=== PATIENT | female | born 1995 | race Two or more races ===

== ENCOUNTER 2020-06-17 01:30 | Inpatient (IN) | payer OTHER ==
[~2020-06-17] VITALS: Ht 152.4 cm; Wt 2.7 kg
[2020-06-17] MEDS ORDERED: PRENATAL + DHA1 EAC1 PO (10:59)
== END 2020-06-19 11:00 | disposition home or self-care (01) | DRG 788 ==
LOC: O/R 01:30 → LDR 01:30 → OB/GYN 01:30 → O/R 11:43 → OB/GYN 15:38
PROVIDERS: ADMIT Obstetrics & Gynecology; ATTEND Obstetrics & Gynecology
PROC: 4A1HXFZ Monitoring of Products of Conception, Cardiac Rhythm, External Approach (ICD-10-PCS; 2020-06-17)
PROC: 10D00Z1 Extraction of Products of Conception, Low, Open Approach (ICD-10-PCS; principal; 2020-06-17 10:30)
DX: O34.211 Maternal care for low transverse scar from previous cesarean delivery (principal); O75.82 Onset (spontaneous) of labor after 37 completed weeks of gestation but before 39 completed weeks gestation, with delivery by (planned) cesarean section; Z3A.38 38 weeks gestation of pregnancy; Z37.0 Single live birth; Z20.822 Contact with and (suspected) exposure to COVID-19